=== PATIENT | female | born 1950 | race Caucasian/White ===

== ENCOUNTER 2017-07-13 11:28 | Emergency (ER) | payer OTHER ==
[~2017-07-13] VITALS: Ht 165.1 cm; Wt 85.0 kg
[~2017-07-13 11:28] MED LIST: ASPI81 PO; ATOR20TA42 PO; CEPH500C3 PO; LORTA5 PO; [UNRECOGNIZED DRUG - REMARK] PO
[2017-07-13 11:37] VITALS: BP 205/92; PULSE 74; RESP 17; TEMP 98.2; O2SAT 98
[2017-07-13] MEDS ORDERED: METO1TAB43 PO (11:48)
[2017-07-13] MEDS ORDERED: TEMA15CA PO (11:48)
[2017-07-13] MEDS ORDERED: ASPI81CH6 CHEW (11:48)
[2017-07-13] MEDS ORDERED: LISI-515 PO (11:48)
[2017-07-13] MEDS ORDERED: ATOR20TA15 PO (11:48)
[2017-07-13] MEDS ORDERED: HYDR25TA5 PO (11:48)
[2017-07-13] MEDS ORDERED: NEBI20 PO (12:25)
[2017-07-13 12:42] LABS: BLOOD, URINE NEG (NEG); GLUCOSE,URINE NEG (NEG); KETONE, URINE NEG (NEG); NITRITE,URINE NEG (NEG); PH, URINE 6.5 (5.0-8.5)
[2017-07-13 12:44] LABS: METHOD OF COLLECTION CLEAN CATCH; URINE COLOR YELLOW (YELLW/STRAW)
[2017-07-13 12:51] LABS: COMMENT (UR) CULT NOT INDICATED; CULTURE IF INDICATED CULT NOT INDICATED; SQUAMOUS EPITHELIAL CELL URINE 0-5 /hpf (0-5)
[2017-07-13] MEDS ORDERED: KETOROLAC TROMETHAMINE 60 MG/2 ML (IM) VIAL IM ONE (13:00)
[2017-07-13] MEDS ORDERED: ROBA500T PO (13:00)
--- NOTE | 2017-07-13 13:00 | PD ---
HPI Chief Complaint: Musculoskeletal Complaint Time Seen by Provider: 12:25 Travel History International Travel<30 days: No Contact w/Intl Traveler<30days: No Traveled to known affect area: No History of Present Illness HPI 67 year old female with low back pain x 2 weeks. pain is worse with movement & relieved with rest. She was concerned it was a UTI prompting her visit today. She denies fever, chills, dysuria, frequency, urgency, abdominal pain. She denies history of kidney disease or kidney stones. The pain is worse with movement and slightly relieved with rest. Pain scale 4/10. PFSH Past Medical History Cardiovascular Problems: Yes High Cholesterol: Yes Diminished Hearing: No Hypertension: Yes Influenza Vaccination: No ?: Not Social History Alcohol Use: Yes (WINE, OCCASIONALLY) Tobacco Use: No Substance Use: No Allergies-Medications (Allergen,Severity, Reaction): Coded Allergies: No Known Allergies (Unverified Adverse Reaction, Unknown, 07/13/17) Reported Meds & Prescriptions Reported Meds & Active Scripts Active Robaxin (Methocarbamol) 500 Mg Tab 500 Mg PO TID Reported Bystolic (Nebivolol) 20 Mg Tab 20 Mg PO DAILY Temazepam 15 Mg Cap 15 Mg PO HS PRN Atorvastatin (Atorvastatin Calcium) 20 Mg Tab 20 Mg PO HS Metoprolol Succinate ER 24 HR (Metoprolol Succinate) 100 Mg Tab 100 Mg PO DAILY Hydrochlorothiazide 25 Mg Tab 25 Mg PO DAILY Lisinopril 20 Mg Tab 20 Mg PO DAILY Aspirin Low Dose (Aspirin) 81 Mg Chew 81 Mg CHEW DAILY Review of Systems Except as stated in HPI: all other systems reviewed are Neg Physical Exam Narrative GENERAL: Alert well-appearing female in no acute distress. SKIN: Warm and dry. HEAD: Normocephalic. EYES: No scleral icterus. No injection or drainage. NECK: Supple, trachea midline. No JVD or lymphadenopathy. CARDIOVASCULAR: Regular rate and rhythm without murmurs, gallops, or rubs. RESPIRATORY: Breath sounds equal bilaterally. No accessory muscle use. GASTROINTESTINAL: Abdomen soft, non-tender, nondistended. MUSCULOSKELETAL: No cyanosis, or edema. BACK: without obvious deformity. No CVA tenderness. TTP low lumbar sacral region. No midline spine tenderness. Data Data Last Documented VS Vital Signs Date Time Temp Pulse Resp B/P (MAP) Pulse Ox O2 Delivery O2 Flow Rate FiO2 07/13/17 11:37 98.2 74 17 205/92 (129) 98 Orders Orders Urinalysis - C+S If Indicated (07/13/17 12:32) Ketorolac Inj (Toradol Inj) (07/13/17 13:00) Labs Laboratory Tests Test 07/13/17 12:15 Urine Collection Type CLEAN CATCH Urine Color YELLOW Urine Turbidity CLEAR Urine pH 6.5 Urine Specific [place] 1.012 Urine Protein NEG mg/dL Urine Glucose (UA) NEG mg/dL Urine Ketones NEG mg/dL Urine Occult Blood NEG Urine Nitrite NEG Urine Bilirubin NEG Urine Leukocyte Esterase NEG Urine Squamous Epithelial Cells 0-5 /hpf Urine Amorphous Sediment FEW Microscopic Urinalysis Comment CULT NOT INDICATED Urine Collection Time 1215 MDM Medical Decision Making Medical Screen Exam Complete: Yes Emergency Medical Condition: Yes Differential Diagnosis LUMBAR STRAIN, UTI, PYELONEPHRITIS, SI JOINT PAIN Narrative Course 67 year old female with low back pain x 2 weeks. pain is worse with movement & relieved with rest. She was concerned it was a UTI prompting her visit today. She denies fever, chills, dysuria, frequency, urgency, abdominal pain. UA negative for infection. No CVA tenderness. She is tender in the low lumbar sacral region at the site of the SI joint. Negative Straight leg raise. No midline lumbar spine tenderness. Her vital signs are stable. She is nontoxic appearing. Agnostic findings discussed with patient. She is reporting symptom improvement after Toradol. She'll be discharged home. She is agreeable to this plan Diagnosis Primary Impression: Low back pain Qualified Codes: M54.5 - Low back pain Referrals: Primary Care Physician Additional Instructions: Take [id number] Motrin/ibuprofen 600-800 (4 pills) milligrams every 6 hours for pain Take the muscle relaxer as needed. Follow-up with her primary doctor for recheck Return if he has new or worsening symptoms Scripts Methocarbamol (Robaxin) 500 Mg Tab 500 MG PO TID for Muscle Spasm, #14 TAB 0 Refills Prov: Dior Raines 07/13/17 Disposition: 01 DISCHARGE HOME Condition: Stable Dior Raines Jul 13, 2017 13:00
== END 2017-07-13 13:13 | disposition home or self-care (01) ==
LOC: PHEFT 11:28
DX: M54.5 Low back pain (principal); I10 Essential (primary) hypertension; E78.00 Pure hypercholesterolemia, unspecified; Z86.79 Personal history of other diseases of the circulatory system
CPT/HCPCS: 81001; 96372; 99284; J1885

== ENCOUNTER 2018-02-03 11:20 | Emergency (ER) | payer OTHER ==
[~2018-02-03] VITALS: Ht 165.1 cm; Wt 85.2 kg
[~2018-02-03 11:20] MED LIST changes: -ASPI81 PO; +ASPI81CH6 CHEW; +ATOR20TA15 PO; -ATOR20TA42 PO; -CEPH500C3 PO; +HYDR25TA5 PO; +LISI-515 PO; -LORTA5 PO; +METO1TAB43 PO; +NEBI20 PO; +ROBA500T PO; +TEMA15CA PO; -[UNRECOGNIZED DRUG - REMARK] PO
[2018-02-03 11:24] VITALS: BP 244/110; PULSE 76; RESP 18; TEMP 98.5; O2SAT 96
[2018-02-03] MEDS ORDERED: ACETAMINOPHEN/HYDROcodone 325 MG/5 MG TAB PO ONE (12:00)
--- NOTE | 2018-02-03 12:13 | PD ---
HPI Chief Complaint: Musculoskeletal Complaint Time Seen by Provider: 11:47 Travel History International Travel<30 days: No Contact w/Intl Traveler<30days: No Traveled to known affect area: No History of Present Illness HPI 67-year-old female presents emergency department for evaluation of left wrist pain after a FOOSH injury that occurred today. Says that she was playing pickle ball when she tripped and fell landing backwards onto her left wrist. Patient points to the radial aspect of the wrist and lateral mid forearm. Patient says her pain is mild to moderate in severity, worse with rotation of her forearm. She denies any clicks or pops. She denies numbness tingling of the extremity. Denies head trauma, neck pain, back pain. She has no other complaints today. PFSH Past Medical History Cardiovascular Problems: Yes High Cholesterol: Yes Diminished Hearing: No Hypertension: Yes Tetanus Vaccination: Unknown Influenza Vaccination: No ?: Not Social History Alcohol Use: Yes (WINE, OCCASIONALLY) Tobacco Use: No Substance Use: No Allergies-Medications (Allergen,Severity, Reaction): Coded Allergies: No Known Allergies (Unverified Adverse Reaction, Unknown, 02/03/18) Reported Meds & Prescriptions Reported Meds & Active Scripts Active Hydrocodone-Acetaminophen 5-325 mg Tab 1 Tab PO Q4H PRN 3 Days Reported Bystolic (Nebivolol) 20 Mg Tab 20 Mg PO DAILY Temazepam 15 Mg Cap 15 Mg PO HS PRN Atorvastatin (Atorvastatin Calcium) 20 Mg Tab 20 Mg PO HS Metoprolol Succinate ER 24 HR (Metoprolol Succinate) 100 Mg Tab 100 Mg PO DAILY Hydrochlorothiazide 25 Mg Tab 25 Mg PO DAILY Lisinopril 20 Mg Tab 20 Mg PO DAILY Aspirin Low Dose (Aspirin) 81 Mg Chew 81 Mg CHEW DAILY Review of Systems Except as stated in HPI: all other systems reviewed are Neg Physical Exam Narrative GENERAL: Well-developed, well-nourished in no apparent distress SKIN: Focused skin assessment warm/dry. HEAD: Atraumatic. Normocephalic. EYES: Pupils equal and round. No scleral icterus. No injection or drainage. ENT: No nasal bleeding or discharge. Mucous membranes pink and moist. NECK: Trachea midline. No JVD. No tenderness palpation of the neck CARDIOVASCULAR: Regular rate and rhythm. No murmur appreciated. RESPIRATORY: No accessory muscle use. Clear to auscultation. Breath sounds equal bilaterally. MUSCULOSKELETAL: No obvious deformities. No clubbing. No cyanosis. No edema. Left wrist-tenderness palpation of the wrist joint, focused on the radial aspect and lateral midforearm, mild deformity of the distal ulna, neurovascular intact. Limited range of motion of wrist and forearm secondary to pain. NEUROLOGICAL: Awake and alert. No obvious cranial nerve deficits. Motor grossly within normal limits. Normal speech. PSYCHIATRIC: Appropriate mood and affect; insight and judgment normal. Data Data Last Documented VS Vital Signs Date Time Temp Pulse Resp B/P (MAP) Pulse Ox O2 Delivery O2 Flow Rate FiO2 02/03/18 11:24 98.5 76 18 244/110 (154) 96 Orders Orders Wrist, Complete ([id number]) (02/03/18 ) Forearm (2vws) (02/03/18 ) Acetamin-Hydrocod 325-5 Mg ([place] 5-325 (02/03/18 12:00) Support Splint (02/03/18 12:57) Ed Discharge Order (02/03/18 13:05) [facility] Medical Decision Making Medical Screen Exam Complete: Yes Emergency Medical Condition: Yes Differential Diagnosis Left wrist contusion, bursitis, cellulitis, fracture, osteonecrosis, avascular necrosis, sprain, strain Narrative Course 67-year-old female presents emergency department for evaluation of left wrist pain after a FOOSH injury that occurred today. Says that she was playing pickle ball when she tripped and fell landing backwards onto her left wrist. Patient points to the radial aspect of the wrist and lateral mid forearm. Patient says her pain is mild to moderate in severity, worse with rotation of her forearm. She denies any clicks or pops. She denies numbness tingling of the extremity. Denies head trauma, neck pain, back pain. She has no other complaints today. Vital signs are stable. Physical exam findings consistent with a sprain versus fracture of the wrist. X -ray forearm obtained as there is an area of ecchymosis associated with tenderness palpation. Hydrocodone for pain. Last Impressions Wrist X-Ray 02/03/18 0000 Signed Impressions: CONCLUSION: Minimally displaced Colles' fracture left wrist. Radius/Ulna X-Ray 02/03/18 0000 Signed Impressions: CONCLUSION: 1. Impacted fracture of the distal radius. 2. Minimally displaced fracture of the ulnar styloid. Patient be splinted with a sugar tong splint. Hydrocodone for outpatient use. Patient advised to follow-up with orthopedic shoe maker within 2-3 days. Advised on healing time and expectations of her injury. She should return for worsening or persistent symptoms. Diagnosis Primary Impression: Wrist fracture Qualified Codes: S62.102A - Fracture of unspecified carpal bone, left wrist, initial encounter for closed fracture Referrals: Jonas Hess MD Orthopedist Additional Instructions: Use ice or heat for symptom relief. If no contraindications, you may use Tylenol or Motrin per package instructions for your pain. Elevate the joint above the heart to reduce swelling. You may use compression with Geronimo wrap or similar to reduce swelling. If symptoms persist or worsen, return to the emergency department. Follow up with your primary care physician within 2 days. Scripts Hydrocodone-Acetaminophen (Hydrocodone-Acetaminophen) 5-325 mg Tab 1 TAB PO Q4H Y for PAIN for 3 Days, #12 TAB 0 Refills Prov: Edwar Lackey MD 02/03/18 Disposition: 01 DISCHARGE HOME Condition: Stable Beata Candelario February 03, 2018 12:13
--- NOTE | 2018-02-03 12:42 | RADRPT ---
EXAM DATE: 02/03/2018 12:37 PM EDT AGE/SEX: 67 years / Female INDICATIONS: Lateral left wrist pain. Patient fell today. CLINICAL DATA: This is the patient's initial encounter. Patient reports that signs and symptoms have been present for 1 day and indicates a pain score of 8/10. MEDICAL/SURGICAL HISTORY: None. None. COMPARISON: No prior exams available for comparison. FINDINGS: There is a minimally displaced intra-articular fracture of the distal radius. Also ulnar styloid frac ture. No dislocation. No other fractures seen. Overlying soft tissue swelling. CONCLUSION: Minimally displaced Colles' fracture left wrist. Electronically signed by: Cristian Welsh MD 02/03/2018 12:41 PM EDT
--- NOTE | 2018-02-03 12:43 | RADRPT ---
EXAM DATE: 02/03/2018 12:39 PM EDT AGE/SEX: 67 years / Female INDICATIONS: Lateral distal left forearm pain. Patient fell today. CLINICAL DATA: This is the patient's initial encounter. Patient reports that signs and symptoms have been present for 1 day and indicates a pain score of 8/10. MEDICAL/SURGICAL HISTORY: None. None. COMPARISON: No prior [place] exams available for comparison. FINDINGS: The examination demonstrates an impacted distal radial fracture. The alignment appears good. There is minimally displaced fracture of the ulnar styloid as well. The remainder the osseous structures appe ar intact. CONCLUSION: 1. Impacted fracture of the distal radius. 2. Minimally displaced fracture of the ulnar styloid. Electronically signed by: Sergei Robbins MD 02/03/2018 12:42 PM EDT
[2018-02-03] MEDS ORDERED: HYDR-3516 PO (13:00)
[2018-02-03 13:20] VITALS: BP 183/80
== END 2018-02-03 13:35 | disposition home or self-care (01) ==
LOC: PHEFT 11:20
DX: S52.532A Colles' fracture of left radius, initial encounter for closed fracture (principal); E78.00 Pure hypercholesterolemia, unspecified; I10 Essential (primary) hypertension; W01.0XXA Fall on same level from slipping, tripping and stumbling without subsequent striking against object, initial encounter; Y93.69 Activity, other involving other sports and athletics played as a team or group; Z79.82 Long term (current) use of aspirin; Z79.899 Other long term (current) drug therapy
CPT/HCPCS: 29125; 73090; 73110